=== PATIENT | female | born 1940 | race Caucasian/White ===

== ENCOUNTER → 2024-03-25 11:15 | Outpatient (REF) | payer OTHER, SELFPAY | LOC: RCS 11:15 | PROVIDERS: ATTENDING PHYSICIAN Internal Medicine Cardiovascular Disease; FAMILY PHYSICIAN Internal Medicine | DX: I42.0 Dilated cardiomyopathy (principal); I44.7 Left bundle-branch block, unspecified; I10 Essential (primary) hypertension; R01.1 Cardiac murmur, unspecified; I34.0 Nonrheumatic mitral (valve) insufficiency | CPT/HCPCS: 93306 ==

== ENCOUNTER 2025-04-04 07:44 | Inpatient (IN) | payer OTHER, SELFPAY ==
[2025-04-03 11:47] VITALS: BP 178/83
[2025-04-03 12:05] LABS: % Basophils 0.3 % (0-2); % Eosinophils 0.2 % (0-6); % Lymphocytes 17.1 % (20.5-51.1); % Monocytes 10.2 % (1.7-9.3); % Neutrophils 70.2 % (42.2-75.2); Absolute Immature Granulocytes 0.1 10^3/uL (0-0.05); Absolute Lymphocytes 1.1 10^3/uL (1.2-3.4); Absolute Monocytes 0.7 10^3/uL (0.1-0.6); Absolute Neutrophils 4.6 10^3/uL (1.4-6.5); Hematocrit 40.6 % (37.0-47.0); Hemoglobin 13.3 g/dL (12.0-16.0); Mean Corp Hgb Conc. 32.8 g/dL (33.0-37.0); Mean Corpuscular Hgb 30.1 pg (27.0-31.0); Mean Corpuscular Volume 91.9 fL (81.0-99.0); Mean Platelet Volume 11.1 fL (7.4-10.4); Nucleated Red Blood Cells % 0 %; Platelet Count 197 10^3/uL (130-400); Red Blood Cell Count 4.42 10^6/uL (4.20-5.40); Red Cell Dist. Width 13.8 % (11.5-14.5); White Blood Cell Count 6.5 10^3/uL (4.8-10.8)
[2025-04-03 12:36] LABS: ALT (SGPT) 15 U/L (0-35); AST (SGOT) 23 U/L (14-36); Albumin 4.8 g/dl (3.5-5.0); Alkaline Phosphatase 67 U/L (38-126); Blood Urea Nitrogen 17 mg/dl (7-17); Calcium 9.7 mg/dl (8.4-10.2); Carbon Dioxide 24 mmol/L (22-30); Chloride 110 mmol/L (98-107); Glucose 104 mg/dl (70-99); Potassium 4.6 mmol/L (3.5-5.1); Sodium 142 mmol/L (135-145); Total Bilirubin 1.3 mg/dl (0.2-1.3); Total Protein 6.7 g/dl (6.3-8.2); eGFR 54.87
--- NOTE | 2025-04-03 15:34 | ED.GENMED ---
History of Present Illness
General
Chief Complaint: Change in Mental Status
Source: patient, spouse and family
Time Seen by Provider: 04/03/25 15:25
History of Present Illness
History of Present Illness:
84-year-old female presents to the emergency department as referred by her primary care doctor after noting to be confused off and on since Thursday. Her family, and son, are at bedside and also contribute to history. She gives the example
that she was trying to balance her checkbook and was unable to do so. She describes feeling 'mixed up' and confused. /son states that she has been forgetting things for example she was unable to remember a conversation that she had just an
hour ago or so recall a phone number that she typically would know. Patient does not remember this. She denies double vision or blurry vision, headache, nausea, vomiting, fever, chills, chest pain, dyspnea, urinary symptoms, headache,
lightheadedness, abdominal pain, anorexia, numbness, tingling, focal weakness, change in gait.
Past History
Past History
ED Past Medical History: HTN and Other (Nonischemic dilated cardiomyopathy)
ED Past Surgical History: Gynecological, Orthopedic and Other (Thyroid surgery)
Social History
Tobacco: Non-smoker
Alcohol: Occasional
Personal:
Living: with family
Phy Exam
Physical Exam
Physical Exam:
GENERAL: Alert , in no apparent distress
EYE: pupils equal and reactive, no photophobia, no nystagmus, EOMI
NECK: Supple, no significant adenopathy.
ENT: o/p clr, mmm.
CARDIAC: Regular rate and rhythm .
LUNGS: Clear breath sounds bilaterally, no acute respiratory distress, no wheezes/rales/rhonchi
ABDOMEN: Soft, without focal tenderness, no r/g, no cvat
NEUROLOGICAL: Alert and oriented to person place and time, no focal neuro deficits, walks with a cane, [id number] cranial nerves II through XII intact, motor intact throughout, sensory intact
SKIN: Warm and dry, skin intact.
MUSCULOSKELETAL: No edema, well perfused.
PSYCH: Normal and appropriate interaction.
Course
Orders/Labs/Results
Orders:
Orders
04/03/25 11:[address] [CT Head W/o Iv Contrast] Urgent
Comment:
Reason For Exam: forgetful
04/03/25 11:55
Complete Blood Count/With Diff Urgent
Comprehensive Metabolic Panel Urgent
04/03/25 15:38
Electrocardiogram (*1) Urgent
Reason for Study: TIA/Stroke
EKG- Treatment ONCE
04/03/25 15:40
Urinalysis Reflex To Culture Urgent
Date Specimen was Collected: 04/03/25
Time Specimen was Collected: 15:33
Abnormal Lab Results
04/03/25
11:55
MCHC 32.8 L g/dL
(33.0-37.0)
MPV 11.1 H fL
(7.4-10.4)
Abs Immat Gran (auto) 0.1 H 10^3/uL
(0-0.05)
Absolute Lymphs (auto) 1.1 L 10^3/uL
(1.2-3.4)
Absolute Monos (auto) 0.7 H 10^3/uL
(0.1-0.6)
Immature Gran % 2.0 H %
(0-0.5)
Lymphocytes % 17.1 L %
(20.5-51.1)
Monocytes % 10.2 H %
(1.7-9.3)
Chloride 110 H mmol/L
(98-107)
Glucose 104 H mg/dl
(70-99)
04/03/25 11:55
04/03/25 11:55
Vital Signs
Initial and Last Documented VS:
Initial Vital Signs
Temp Pulse Resp BP Pulse Ox
98.4 F 83 18 178/83 98
04/03/25 11:47 04/03/25 11:47 04/03/25 11:47 04/03/25 11:47 04/03/25 11:47
Last Documented Vital Signs
Temp Pulse Resp BP Pulse Ox
98.4 F 83 18 178/83 97
04/03/25 11:47 04/03/25 11:47 04/03/25 11:47 04/03/25 11:47 04/03/25 15:45
Update Note
Update Note:
Patient presents to the Emergency Department with ___confusion/forgetfulness
Number and Complexity of Problems Addressed at the Encounter
� Chronic conditions affecting care:
� Acute Exacerbation and/or Progression of Chronic Illness:
� Differential Diagnosis includes: But not limited to TGA, TIA, nonepileptic seizure with postictal confusion, electrolyte disorder, etc. etc.
Amount and/or Complexity of Data to be Reviewed and Analyzed
� I performed an independent evaluation of and my interpretation is:
EKG: Read by me, normal sinus rhythm, LAD, left bundle, no acute ischemia
CT: Read by radiology mild cortical atrophy no acute findings
Xrays:
Laboratory Studies: Generally unremarkable
Other:
� Review of other/old records reveals: Patient was admitted for very similar symptoms with a workup in 2018 diagnosed with TGA versus seizure. Cath at that time noted: Mild global hypokinesis with EF 44%
2: No significant CAD
3. Findings consistent with mild dilated cardiomyopathy
echo 2023 Normal left ventricular size, wall thickness and systolic function. LV ejection
fraction is 55-60%. Abnormal (paradoxical) septal motion consistent with left
bundle branch block. Diastolic function indeterminate.
� Clinical information was obtained by an independent historian: Son and who are at bedside
� Prescriptions/Medications Considered but not given:
� Further testing considered but not performed:
Risk of Complications and/or Morbidity or Mortality of Patient Management
� Social determinants of health affecting care:
� Discussion with other providers (PCP, Hospitalists, Consultants, etc):
� Escalation of care including admission/observation vs risk of discharge considered: Concerned that patient's symptoms very similar to her prior presentation of TGA, recommend observation and likely MR will discussed with
hospital
ED Attending Note
-
Portions of this chart may have been created with voice recognition software.� Occasional wrong word or��sound alike� substitutions may have occurred due to the inherent limitations of voice recognition software.
Discharge Plan
Departure
Patient Disposition: Admit
Date of Disposition: 04/03/25
Time of Disposition: 15:57
Admit to: Telemetry
Presentation/result/management discussed w/ accepting MD/DO: Hospitalist
Discharge Problem:
Acute confusion
Prescriptions:
No Action
carvedilol 3.125 MG tablet
3.125 mg PO BID Qty: 60 0RF
lisinopril 5 MG tablet
5 mg PO DAILY Qty: 30 0RF
cholecalciferol (vitamin D3) 1,000 UNITS tablet
1,000 units PO DAILY Qty: 30 0RF
Referrals:
Robinson Hart MD [Family Provider, Internal Medicine]
Interventions
Interventions:
*Risk Screen - Suicide Last Done: 04/03/25 11:47
*General Assessment Last Done: 04/03/25 11:47
*Neglect/Abuse Screening Last Done: 04/03/25 11:47
*ED- Fall Risk Assessment Last Done: 04/03/25 11:47
*ED COVID-19 Vaccine History Last Done: 04/03/25 11:47
ED- Neurological Assessment Last Done: 04/03/25 15:41
Discharge Date and Time
Print Language: MACEDONIAN
[2025-04-03 15:58] LABS: Urine Albumin 2+ (Neg - Trace); Urine Bilirubin Negative (Negative); Urine Color Yellow; Urine Glucose Negative (Negative); Urine Ketone 1+ (Negative); Urine Leukocyte 2+ (Negative); Urine Nitrite Negative (Negative); Urine Occult Blood 2+ (Negative); Urine Urobilinogen 1+ (Neg - 1+)
--- NOTE | 2025-04-03 16:01 | HPS.HSE ---
Family Physician
-
Family Physician: Robinson Hart
Chief Complaint
-
Intermittent confusion/amnesia
History of Present Illness
84 y/o F with PMHx:
Essential HTN
Hypercholesterolemia
Pulmonary hypertension
Moderate tricuspid regurgitation
Who presents with intermittent confusion. 4 days ago the patient was in her usual state of health. She does not have confusion at baseline. Over the last 3 days the patient has had intermittent episodes where she has been confused. Specifically,
she has had trouble balancing the business checkbook. She also could not recall her son's phone number which has been the same for the last 25 years. She also states she had trouble focusing on the clock. She had some nausea over the last 3 days.
Denies any other acute symptomatology including chest pain, shortness of breath, vomiting, diarrhea, abdominal pain, headache, visual disturbances, rash, focal neurological deficits, dysuria or other urinary symptoms.
Medical History
Past Medical History
Past Medical History: Reports Other
Additional Past Medical History:
Essential HTN
Hypercholesterolemia
Pulmonary hypertension
Moderate tricuspid regurgitation
Past Surgical History: Reports Other (N/A)
Social History
Tobacco: Non-smoker
Alcohol: Occasional
Drug: None
Personal:
Living: With Family
Family History
Family History: Not pertinent
Allergies / Home Medications
Allergies reflects when Allergies were last updated in [facility].
Home Medications with original date entered in [facility]
Allergy/Medication List:
Allergies
Allergy/AdvReac Type Severity Reaction Status Date / Time
NKA - No Known Allergies Allergy Unknown Uncoded 04/03/25 11:49
Home Medications
cholecalciferol (vitamin D3) 25 mcg (1,000 unit) tablet 1,000 units PO DAILY ##30 10/14/18
amlodipine 5 mg tablet (Norvasc) 5 mg PO DAILY 04/03/25
ascorbic acid (vitamin C) 1,000 mg tablet (Vitamin C) 1,000 mg PO DAILY 04/03/25
carvedilol 12.5 mg tablet (Coreg) 12.5 mg PO BID 04/03/25
lisinopril 20 mg tablet 20 mg PO DAILY 04/03/25
Review of Systems
-
History Source: Patient
A 12 point ROS was completed and negative except as noted: Yes
Physical Exam
Vital Signs
Vital Signs
Temp Pulse Resp BP Pulse Ox
98.4 F 83 18 178/83 97
04/03/25 11:47 04/03/25 11:47 04/03/25 11:47 04/03/25 11:47 04/03/25 15:45
Physical Exam
General: Other (.)
Laboratory Results
-
04/03/25 11:55
04/03/25 11:55
Laboratory Results
Total Bilirubin 1.3 mg/dl (0.2-1.3) 04/03/25 11:55
AST 23 U/L (14-36) 04/03/25 11:55
ALT 15 U/L (0-35) 04/03/25 11:55
Alkaline Phosphatase 67 U/L (38-126) 04/03/25 11:55
Impression/Plan
-
Gen: NAD, AAOx3.
Eyes: EOMI, PERRLA, no scleral icterus.
Neck: supple.
CV: RRR, +S1/S2, no m/r/g.
Resp: CTAB, no rales, wheezes, or rhonchi.
Abd: +BS, soft, NT, ND
Skin: No rashes.
Neuro: CN 2-12 intact, non-focal.
Psych: Normal mood and affect.
CT head: There is a mild changes of cortical atrophy, with no acute findings.
New onset confusion/amnesia:
-Interestingly the patient had a similar episode in September 2018 and was admitted for 5 days at that time
-CT brain above and without acute findings
-check MRI brain
-c/s neuro
-suspect TGA-like etiology
Essential HTN:
-cont Norvasc/Coreg/Lisinopril (first doses now with hypertensive urgency due to missing today's doses)
Other problems:
Hypercholesterolemia
Pulmonary hypertension
Moderate tricuspid regurgitation
FULL/Lovenox
[2025-04-03 16:07] LABS: Urine Character Slightly Cloudy (Clear)
[2025-04-03 16:22] LABS: Urine Bacteria Moderate (Negative); Urine Mucus Moderate; Urine Squamous Cell >30 /LPF (Few)
[2025-04-03 16:40] VITALS: BP 182/68
[2025-04-03] MEDS: ZESTRIL 20 MG PO (16:40)
[2025-04-03] MEDS: NORVASC 5 MG PO (16:42)
[2025-04-03] MEDS: COREG 12.5 MG PO (16:42)
[2025-04-03 17:00] VITALS: BP 170/51
[2025-04-03 18:32] VITALS: BP 156/69; BMI 25.7
--- NOTE | 2025-04-03 18:36 | PTCARENOTE ---
pt admitted from ED to room 406-01. pt ambulated with cane to bed. standing weight obtained. pt AAOX3- states she is forgetful recently. pt oriented to room and unit
[2025-04-03] MEDS: LOVENOX 40 MG SC (19:20)
--- NOTE | 2025-04-03 22:46 | PTCARENOTE ---
Dr. Melendez notified of MRI results. No new orders obtained at this time. Chuy ALEXIS also notified. NIH/Neuro check performed per nursing protocol. NIH 0 with no neuro deficits noted at this time. PT AAOx3 able to ambulate with cane to bathroom with
assistance. Pt denies any complaints at this time. Bed alarm in place for pt safety. Vital signs stable. Will continue to monitor.
--- NOTE | 2025-04-03 23:16 | W.PN.UPDATE ---
Update Note
Progress Note Update
CRITICAL VALUE: Results sent to Dr. Melendez on 04/03/2025 at 9:27 PM.
Received MRI results: Prominent nonhemorrhagic acute/subacute left parietal lobe infarct. Additional scattered smaller infarcts in the left occipital lobe.
Neurology previously consulted.
Patient started on ASA and Plavix. Ordered NIH/Neuro checks.
NIH score 0 at 22:43 on 04/03/25.
[2025-04-03 23:46] VITALS: BP 128/54
[2025-04-04] VITALS (7 sets, daily range): BP systolic 106–125; BP diastolic 48–64; PULSE 71–73; O2SAT 94
[2025-04-04] MEDS: LOW STRENGTH ASPIRIN 81 MG PO ×2 (00:08→07:43)
[2025-04-04] MEDS: PLAVIX 75 MG PO ×2 (00:08→07:44)
[2025-04-04] MEDS: COREG 12.5 MG PO ×3 (06:06→19:39)
[2025-04-04 07:33] LABS: HDL Cholesterol 42 mg/dl; LDL Cholesterol, Calculated 102 mg/dl; Total Cholesterol 163 mg/dl (50-199); Triglyceride 99 mg/dl (10-149); Very Low Density Lipoprotein 19 mg/dl (0-30)
[2025-04-04] MEDS: ZESTRIL 20 MG PO (07:43)
[2025-04-04] MEDS: NORVASC 5 MG PO (07:43)
[2025-04-04] MEDS: VITAMIN C 1000 MG PO (07:44)
[2025-04-04] MEDS: VITAMIN D3 (cholecalciferol) 25 MCG PO (07:44)
[2025-04-04] MEDS: FLUSH (NSS) 1 FLUSH IV (07:44)
--- NOTE | 2025-04-04 07:45 | W.PN.HOSP.TC ---
Today's Communication/Plan
-
see plan
Assessment / Plan
Assessment / Plan
Gen: NAD, awake and alert
Eyes: EOMI, PERRLA, no scleral icterus.
Neck: supple.
CV: RRR, +S1/S2, no m/r/g.
Resp: CTAB, no rales, wheezes, or rhonchi.
Abd: +BS, soft, NT, ND
Skin: No rashes.
Neuro: Very slight right facial droop, expressive aphasia, otherwise CN 2-12 intact
Psych: Normal mood and affect.
CT head: There is a mild changes of cortical atrophy, with no acute findings.
MRI brain: Prominent nonhemorrhagic acute/subacute left parietal lobe infarct. Additional scattered smaller infarcts in the left occipital lobe.
MRA head: This examination demonstrates no focal hemodynamically significant stenosis, aneurysm or occlusion.
MRA Neck: This examination demonstrates no focal hemodynamically significant stenosis, aneurysm or occlusion. Heterogeneous appearance of the left hemithyroid, possible thyroid nodules. Consider further evaluation with dedicated thyroid ultrasound.
Acute CVAs:
-presented with new onset confusion/amnesia
-MRI brain above with acute CVAs
-MRA head/neck above without focal hemodynamically significant stenoses, aneurysm, or occlusion
-neuro following
-tele with SR (reviewed by me)
-cont neurochecks
-cont ASA, cont Plavix x 21 days
-start statin
-check CTA head/neck
Essential HTN:
-cont Norvasc/Coreg/Lisinopril
Other problems:
Hypercholesterolemia: Start statin
Pulmonary hypertension
Moderate TR
FULL/Lovenox
Anticipated Discharge: Within 24 hours
Subjective/Interval History
-
Date of Service: April 04, 2025
Patient without acute complaints. She is experiencing some expressive aphasia.
Objective Data
-
Vital Signs:
Vital Signs
Temp Pulse Resp BP Pulse Ox
98.4 F 76 16 123/63 96
04/04/25 07:41 04/04/25 07:41 04/04/25 07:41 04/04/25 07:41 04/04/25 07:41
I&O
04/03/25 04/04/25 04/05/25
06:59 06:59 06:59
Intake Total 480 / 480
Balance 480 / 480
--- NOTE | 2025-04-04 08:09 | CON.NEURO ---
Addendum entered and electronically signed by Librado Melendez MD 04/04/25 11:32:
Studies reviewed.
I have personally examined the patient. I reviewed and agree with the MECHANIC'S ASSISTANT's Note.
My addenda:
Awake, alert, interactive. No acute distress.
Speech intact. Patient demonstrates dyscalculia
Follows 2-step requests w/o difficulty. No tremor.
Extra-ocular movements grossly intact.
Facial movements full and symmetric. Hearing intact to normal conversational volume.
Normal UE movements bilaterally.
Neck: full ROM.
Chest: no dyspnea
Heart: no JVD
Ext: (-) Clubbing, (-) Cyanosis, (-) Edema
IMPRESSIONS/RECOMMENDATIONS:
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
Patient was not a candidate for either tenecteplase or intra-arterial thrombectomy due to out of timeframe
Patient should undergo treatment with dual antiplatelet therapy followed by aspirin 81 mg routinely
Check CTA head and neck to ensure there is no clinically significant stenosis intracranially or extracranially
Rehabilitation evaluations
D/W patient
All questions answered.
Will continue to follow as outpatient.
Original Note:
Documented by User: Mai Tsang NP 04/04/25 09:38
Neuro Assessment/Plan
Assessment
84-year-old right-handed female with a past medical history of HTN, LBBB and nonischemic cardiomyopathy presented to [facility] on 04/03/2025 as referred by her primary care doctor Dr. Hart after noted to have intermittent confusion since Thursday
(03/31/2025).
ECG: NORMAL SINUS RHYTHM
LEFT AXIS DEVIATION
LEFT BUNDLE BRANCH BLOCK
ABNORMAL ECG
WHEN COMPARED WITH ECG OF 09-OCT-2018 21:55,
NO SIGNIFICANT CHANGE WAS FOUND
Confirmed by MD DB, NOE Mcconnell ([id number]) on 04/03/2025 4:16:[address]: mild changes of cortical atrophy, with no acute findings
Brain MRI: prominent nonhemorrhagic acute/subacute left parietal lobe infarct with additional scattered smaller infarcts in the left occipital lobe.
Labs: Cholesterol 163, LDL 102, Hgb A1C pending
Plan
Impression: acute/subacute left parietal and left occipital lobe infarcts with multiple risk factors including HTN, HLD and chronic small vessel ischemic changes
-check CTA head and neck
-BP goal is normotension.
-ASA 81mg and Clopidigrel 75 mg daily for 21 days followed by monotherapy with ASA 81 mg daily
-hemoglobin A1C pending, with goal <7. Goal is normoglycemia.
-continue Atorvastatin 40 mg nightly, Goal LDL after stroke is <70.
-PT/OT/ST evaluations
-DVT prophylaxis
-continue neurochecks and NIHSS per unit guidelines
-stroke education material to be given
Plan of care discussed with Dr. Melendez and patient, all questions encouraged and answered.
Consultation
Order
Date of Consultation: 04/04/25
Requesting Provider: hospitalist/Dr. Hamm
Reason for Consult: confusion
Subjective/Objective
Subjective Data
Date of Service: April 04, 2025
84-year-old right-handed female with a past medical history of HTN, LBBB and nonischemic cardiomyopathy presented to [facility] on 04/03/2025 as referred by her primary care doctor Dr. Hart after noted to have intermittent confusion since Thursday
(03/31/2025). She does not have confusion at baseline. She states she started having trouble balancing her checkbook acutely. She describes feeling 'mixed up' and confused. She states she had a similar feeling of confusion in September 2018 and was
admitted for 5 days at that time. She was diagnosed with TGA versus seizure. Cath at that time noted: Mild global hypokinesis with EF 44%, no significant CAD, findings consistent with mild dilated cardiomyopathy. She denies double vision or blurry
vision, headache, nausea, vomiting, fever, chills, chest pain, dyspnea, urinary symptoms, headache, lightheadedness, abdominal pain, anorexia, numbness, tingling, focal weakness, change in gait. She does not drive. She continues to participate in
her hobbies. She has hypertension and takes metoprolol. In ED she was found to be hypertensive with SBP in the 180s. ECG showed normal sinus rhythm with LBBB. Her head CT showed mild changes of cortical atrophy, with no acute findings. Her brain MRI
showed prominent nonhemorrhagic acute/subacute left parietal lobe infarct with additional scattered smaller infarcts in the left occipital lobe. Labs notable for LDL 102.
Objective Data
Vital Signs
Temp Pulse Resp BP Pulse Ox
98.4 F 76 16 123/63 96
04/04/25 07:41 04/04/25 07:44 04/04/25 07:41 04/04/25 07:44 04/04/25 07:41
Lab Results
04/03/25 11:55
04/03/25 11:55
Sodium 142 mmol/L (135-145) 04/03/25 11:55
Potassium 4.6 mmol/L (3.5-5.1) 04/03/25 11:55
BUN 17 mg/dl (7-17) 04/03/25 11:55
Glucose 104 mg/dl (70-99) H 04/03/25 11:55
Calcium 9.7 mg/dl (8.4-10.2) 04/03/25 11:55
LDL Cholesterol, Calc 102 mg/dl 04/04/25 06:17
Patient Allergies
No Known Allergies Allergy (Verified 04/03/25 18:45)
LDL Level: >70, statin ordered
CVA Assessment
Onset of Stroke Symptoms
Onset of symptoms known: Yes
Date of onset of symptoms: 03/31/25
NIH Stroke Score
Level of Consciousness: 0 - Alert
LOC Questions: 0-Answers both correctly
LOC Commands: 0-Performs both correctly
Best Horizontal Gaze: 0-Normal
Visual Suárez: 0=Normal, no visual loss
Facial Palsy: 0=Normal, symmetrical
Motor - Right Arm: 0=No drift 10 seconds
Motor - Left Arm: 0=No drift 10 seconds
Motor - Right Le-No drift 5 seconds
Motor - Left Le-No drift 5 seconds
Limb Ataxia: 0-Absent
Sensation: 0-Normal
Best Language: 0-No aphasia
Dysarthria: 0-Normal
Extinction and Inattention: 1-Sensory inattention (right)
NIH Total Score:: 1
Tenecteplase Contraindications
Inclusion and Exclusion criteria reviewed: Yes
Reasons for NON-Tx with Thrombolytics ABSOLUTE Exclusions: Time-out of window
IAT Contraindications: NIHSS < 6 and >6 hrs from onset/last seen normal
Modified Carla Score (MRS)
-
Modified Carla Scale (mRS): Moderate disability. Requires some help, able to walk unassisted.
Score: 3
Review of Systems
-
History Source: Patient
Constitutional: No Symptoms
EENT: No Symptoms Reported
Respiratory: No Symptoms
Cardiac: No Symptoms
Abdomen/GI: No Symptoms
Genitourinary: No Symptoms
Musculoskeletal: No Symptoms
Neuro: Other (confusion)
Physical Exam
-
General: No Apparent Distress, Comfortable and Appears Stated Age
HEENT: Normocephalic, Atraumatic and Anicteric
Neck: Full Range of Motion
Respiratory: No Dyspnea
Cardiac: No JVD
GI: Non-distended
Skin: Unremarkable
Extremities: No Clubbing, No Cyanosis and No Edema
Psych: Confused
Extended Neurological Exam
Attention Span & Concentration: Awake, Alert, Interactive, Mild Difficulty with 2 Step Request and Other (Stated month was june and year was 2021, difficulty with serial 7s)
Memory: Reduced
Tremor: Hand Tremor Absent and Head Tremor Absent
Speech: Quality Unremarkable, Quantity Unremarkable and Rate of Production Unremarkable
Cranial Nerve II: Left Eye: Visual Suárez Grossly Intact
Cranial Nerve II: Right Eye: Visual Suárez Grossly Intact
Cranial Nerves III, IV, : Extraocular Movement: Extraocular Movement Full in all Directions
Cranial Nerve VII: Facial Symmetry: Normal Facial Symmetry
Cranial Nerve VIII: Hearing: Unremarkable Hearing to Normal Conversational Volume
Cranial Nerve XII: Tongue Protusion: Midline
Muscle Strength, Overall: Full Throughout
Muscle Bulk & Tone: Bulk Unremarkable and Tone Unremarkable
Pronator Drift: No Drift in Upper Extremities and No Drift in Lower Extremities
Deep Tendon Reflexes: Trace Throughout
Coordination: [id number] Testing Unremarkable
Data Reviewed
-
CT Head: Report Reviewed and Image Reviewed
MRI Head: Report Reviewed and Image Reviewed
Labs: Report Reviewed
Lipid Profile: Report Reviewed
Reviewed with: Physician, Nurse and Patient
Old Records: Summarized
Medications
-
Active Medications
Generic Name Dose Route Start Last Admin
Trade Name Freq PRN Reason Stop Dose Admin
Acetaminophen 650 mg 04/03/25 18:39
Acetaminophen 325 Mg Tablet PO 05/01/25 18:38
Q4HPRN PRN
mild pain/FISCHER/temp> 100.4F
Acetaminophen 650 mg 04/03/25 23:24
Acetaminophen 650 Mg Rectal Suppository RECTAL 05/01/25 23:23
Q4HPRN PRN
FISCHER, mild pain, or temp >100.4F
Acetaminophen 650 mg 04/03/25 23:24
Acetaminophen 325 Mg Tablet PO 05/01/25 23:23
Q4HPRN PRN
FISCHER, mild pain, or temp >100.4F
Amlodipine Besylate 5 mg 04/04/25 08:00 04/04/25 07:43
Amlodipine 5 Mg Tablet PO 05/02/25 07:59 5 mg
DAILY SILVIANO Administration
Ascorbic Acid 1,000 mg 04/04/25 08:00 04/04/25 07:44
Ascorbic Acid 500 Mg Tablet PO 05/02/25 07:59 1,000 mg
DAILY SILVIANO Administration
Aspirin 81 mg 04/04/25 08:00 04/04/25 07:43
Aspirin 81 Mg Chewable Tablet PO 05/02/25 07:59 81 mg
DAILY SILVIANO Administration
Atorvastatin Calcium 40 mg 04/04/25 18:00
Atorvastatin (Lipitor) 40 Mg Tablet PO 05/02/25 17:59
QPM SILVIANO
Bisacodyl 10 mg 04/03/25 18:39
Bisacodyl 10 Mg Rectal Suppository RECTAL 05/01/25 18:38
[id number] PRN
constipation
Carvedilol 12.5 mg 04/04/25 07:00 04/04/25 07:44
Carvedilol 12.5 Mg Tablet PO 05/02/25 06:59 12.5 mg
BID SILVIANO Administration
Cholecalciferol 25 mcg 04/04/25 08:00 04/04/25 07:44
Cholecalciferol (Vitamin D3) 25 Mcg Tablet (1,000 Units) PO 05/02/25 07:59 25 mcg
DAILY SILVIANO Administration
Clopidogrel Bisulfate 75 mg 04/04/25 08:00 04/04/25 07:44
Clopidogrel 75 Mg Tablet PO 05/02/25 07:59 75 mg
DAILY SILVIANO Administration
Enoxaparin Sodium 40 mg 04/03/25 18:39 04/03/25 19:20
Enoxaparin Sodium 40 Mg/0.4 Ml Syringe SC 05/01/25 18:38 40 mg
QPM SILVIANO Administration
Lisinopril 20 mg 04/04/25 08:00 04/04/25 07:43
Lisinopril 20 Mg Tablet PO 05/02/25 07:59 20 mg
DAILY SILVIANO Administration
Polyethylene Glycol 17 grams 04/03/25 18:39
Polyethylene Glycol Powder 17 Grams Packet PO 05/01/25 18:38
DAILYPRN PRN
constipation
Senna/Docusate Sodium 1 tablet 04/03/25 18:39
Docusate W/Senna (Cece-Colace) Tablet PO 05/01/25 18:38
BIDPRN PRN
constipation
Sodium Chloride 0 flush 04/03/25 19:00 04/04/25 07:44
Sodium Chloride 0.9% (Flush) Syringe IV 05/01/25 18:59 1 flush
PER PROTOCOL SILVIANO Administration
Home Medications
�Medication �Instructions �Recorded
cholecalciferol (vitamin D3) 25 1,000 units PO DAILY ##30 10/14/18
mcg (1,000 unit) tablet
amlodipine 5 mg tablet (Norvasc) 5 mg PO DAILY Blood Pressure 04/03/25
ascorbic acid (vitamin C) 1,000 mg 1,000 mg PO DAILY Supplement 04/03/25
tablet (Vitamin C)
carvedilol 12.5 mg tablet (Coreg) 12.5 mg PO BID Blood Pressure 04/03/25
lisinopril 20 mg tablet 20 mg PO DAILY Blood Pressure 04/03/25
Past History
Past History
ED Past Medical History: HTN and Other (Nonischemic dilated cardiomyopathy)
ED Past Surgical History: Gynecological, Orthopedic and Other (Thyroid surgery)
Family/Social History
Tobacco: Non-smoker
Alcohol: Occasional
Personal:
Living: with family

Documented by User: Librado Melendez MD 04/04/25 11:21
CVA Assessment
NIH Stroke Score
NIH Total Score:: 1
Modified [place] Score (MRS)
-
Score: 3
[2025-04-04 11:43] LABS: Glycohemoglobin (HgbA1c) 5.4 % (4.0-5.6)
--- NOTE | 2025-04-04 15:13 | PTOTSP ---
Speech-Language Pathology - Communication Assessment
Patient presents with at least mild cognitive communication deficits in the areas of memory, and complex verbal processing. Possible agraphia though auditory and visual distractions in room, and known visual difficulty (son reports patient in need
of eyeglass prescription change) may be impacting results of testing.
Discussed with patient and her son this manager mail's recommendations as noted below. Also provided patient/son with brochure on outpatient services should patient be discharged to that level of care.
Recommend:
1. Comprehensive cognitive communication assessment in next level of care. ST will follow with further cognitive communication assessment while in acute setting.
2. Continue with regular solids and thin liquids.
--- NOTE | 2025-04-04 15:58 | PTCARENOTE ---
Pt AAO x3, but has poor short term memory; needs frequent direction with activities. NIHSS 0. Pt pleasant and cooperative; denies c/o. GREENE; OOB in chair/ambulates to BR with cane and minimal assistance; denies weakness/dizziness. VSS.
Telemetry:NSR. On room air- pulse ox 97%, no SOB noted. Abd soft, con PO wel, no dysphagia noted. Voids in BR; has slight stress incont. Resting comfortably at present. Will continue to monitor.
--- NOTE | 2025-04-04 16:21 | CM ---
Alert awake oriented patient who lives with her Ed in a 2 story home with 1 steps to enter and 12 steps to bed/bathroom. She is independent in activates of daily living.She does drive .She used a cane.
No VN in past . No SNF hx
Pharmacy [facility]
PCP Dr Hart
PLAN Home with no needs
[2025-04-04] MEDS: LIPITOR 40 MG PO (17:24)
[2025-04-04] MEDS: LOVENOX 40 MG SC (17:24)
[2025-04-05 03:40] VITALS: BP 134/59
[2025-04-05 07:59] VITALS: BP 164/64
[2025-04-05] MEDS: NORVASC 5 MG PO (08:20)
[2025-04-05] MEDS: LOW STRENGTH ASPIRIN 81 MG PO (08:20)
[2025-04-05] MEDS: PLAVIX 75 MG PO (08:20)
[2025-04-05] MEDS: COREG 12.5 MG PO (08:20)
[2025-04-05] MEDS: VITAMIN C 1000 MG PO (08:20)
[2025-04-05] MEDS: ZESTRIL 20 MG PO (08:21)
[2025-04-05] MEDS: VITAMIN D3 (cholecalciferol) 25 MCG PO (08:21)
--- NOTE | 2025-04-05 09:55 | W.PN.HOSP.TC ---
Today's Communication/Plan
-
d/c
Assessment / Plan
Assessment / Plan
Gen: NAD, awake and alert
Eyes: EOMI, PERRLA, no scleral icterus.
Neck: supple.
CV: remains RRR, +S1/S2, no m/r/g.
Resp: remains CTAB, no rales, wheezes, or rhonchi.
Abd: +BS, soft, NT, ND
Skin: No rashes.
Neuro: CN 2-12 intact, intact
Psych: Normal mood and affect.
CT head: There is a mild changes of cortical atrophy, with no acute findings.
MRI brain: Prominent nonhemorrhagic acute/subacute left parietal lobe infarct. Additional scattered smaller infarcts in the left occipital lobe.
MRA head: This examination demonstrates no focal hemodynamically significant stenosis, aneurysm or occlusion.
MRA Neck: This examination demonstrates no focal hemodynamically significant stenosis, aneurysm or occlusion. Heterogeneous appearance of the left hemithyroid, possible thyroid nodules. Consider further evaluation with dedicated thyroid ultrasound.
CTA head/neck: No acute vascular pathology. No M1 nor M2 occlusion. Stable findings suggesting small subacute left parieto-occipital region infarct. Mild atrophy. Stable. Multilevel degenerative disc disease of the cervical spine. Hypodense left
thyroid lesion likely a benign nodule. Nonurgent dedicated thyroid ultrasound recommended if not previously evaluated.
Acute CVAs:
-presented with new onset confusion/amnesia
-MRI brain above with acute CVAs
-MRA head/neck and CTA head/neck above without focal hemodynamically significant stenoses, aneurysm, or occlusion
-tele with SR (reviewed by me)
-cont neurochecks
-cont ASA, cont Plavix x 21 days
-cont statin
-neuro saw in c/s and has medically cleared the pt for discharge
Essential HTN:
-cont Norvasc/Coreg/Lisinopril
Other problems:
Hypercholesterolemia: Start statin
Pulmonary hypertension
Moderate TR
FULL/Lovenox
Medically cleared for discharge. Case management aware.
Total time spent on d/c = 31 min. This included today's physical exam, progress note, review of laboratory and diagnostic data, preparation of discharge documents and prescriptions, and discussions about the pt's hospital course and discharge plan
with the patient and other medical field representative involved in the patient's care.
Anticipated Discharge: Today
Subjective/Interval History
-
Date of Service: April 05, 2025
No new complaints.
Objective Data
-
Vital Signs:
Vital Signs
Temp Pulse Resp BP Pulse Ox
99 F 83 16 164/64 97
04/05/25 07:59 04/05/25 07:59 04/05/25 07:59 04/05/25 07:59 04/05/25 08:25
I&O
04/04/25 04/05/25 04/06/25
06:59 06:59 06:59
Intake Total 480 / 480 1640 / 1640 240 / 240
Balance 480 / 480 1640 / 1640 240 / 240
--- NOTE | 2025-04-05 11:11 | CM ---
entered order for discharge.
Spoke with pt and son Sheldon .
[facility] .
Pt changed to inpatient IMM reviewed with pt and son Sheldon IMM signed on chart.
Sheldon and will drive her home.
MD notified son Sheldon would like update.
PLAN Home with VN
[2025-04-05 11:13] VITALS: BP 103/40
--- NOTE | 2025-04-05 12:13 | VNURNOTE ---
Attempted to meet with pt at bedside. Nurses were working with her, no family at bedside. Call placed to spouse Ed, no answer, left message. [facility] referral placed in [facility].
[2025-04-05 12:41] VITALS: PULSE 66; O2SAT 97
--- NOTE | 2025-04-05 12:45 | VNURNOTE ---
Home Health Liaison met with patient, spouse, and son Sheldon at bedside to discuss [facility] nurse/therapy, visits, schedule and homebound status. All are agreeable and understand that visits at home will be 2-3 x per week to assess and teach medical
management. All are aware that [facility] will contact them for start of care in 1-2 days after discharge from .
[facility] referral completed in [facility].
--- NOTE | 2025-04-05 14:15 | PTCARENOTE ---
Pt with confusion. Intermittent right arm ataxia and intermittent mild aphasia throughout shift. NIHSS 3. Dr. Hamm and Dr. Melendez notified. Dr. Melendez stated that expectation is for symptoms to 'wax and wane.' Communicated to and son at
bedside. Discharge orders entered and medication and instructions reviewed with patients and family. Questions answered. IV sites and telemetry pack removed. Pt escorted to son's car by wheelchair.
--- NOTE | 2025-04-05 15:54 | W.DCSUMMARY ---
Discharge Summary
Discharge Data
Date of Admission: 04/04/25
Date of Discharge: 04/05/25
-
Pending Results: No
Hospital Course
Primary diagnoses:
Acute acute/subacute left parietal lobe infarct and scattered smaller infarcts in the left occipital lobe
Secondary diagnoses:
Hyperlipidemia
Pulmonary hypertension
Moderate tricuspid regurgitation
Consultants:
Neurology
Imaging:
CT head: There is a mild changes of cortical atrophy, with no acute findings.
MRI brain: Prominent nonhemorrhagic acute/subacute left parietal lobe infarct. Additional scattered smaller infarcts in the left occipital lobe.
MRA head: This examination demonstrates no focal hemodynamically significant stenosis, aneurysm or occlusion.
MRA Neck: This examination demonstrates no focal hemodynamically significant stenosis, aneurysm or occlusion. Heterogeneous appearance of the left hemithyroid, possible thyroid nodules. Consider further evaluation with dedicated thyroid ultrasound.
CTA head/neck: No acute vascular pathology. No M1 nor M2 occlusion. Stable findings suggesting small subacute left parieto-occipital region infarct. Mild atrophy. Stable. Multilevel degenerative disc disease of the cervical spine. Hypodense left
thyroid lesion likely a benign nodule. Nonurgent dedicated thyroid ultrasound recommended if not previously evaluated.
Hospital course: 84-year-old female presented with a chief complaint of intermittent memory loss as outlined in the H&P done on admission. All imaging above and notable for acute acute/subacute left parietal lobe infarct and scattered smaller
infarcts in the left occipital lobe. The patient was placed on aspirin and statin. She was placed on Plavix for which she will complete a 21-day course. Telemetry showed sinus rhythm and did not reveal atrial fibrillation or flutter. The patient
was discharged in medically stable condition.
Incidental finding: Heterogeneous appearance of the left hemithyroid, possible thyroid nodules. Consider further evaluation with dedicated thyroid ultrasound.
- This was discussed with the patient's son over the phone at 1600 on 04/05/25. I recommended a thyroid ultrasound within the next 1 to 2 months. He verbally acknowledged understanding of this.
Discharge Plan
-
Patient Disposition: Home with Home Care
Discharge Diagnosis/Procedures: Acute acute/subacute left parietal lobe infarct and scattered smaller infarcts in the left occipital lobe
Condition: Good
Diet: Other diet
Additional Diets: Heart healthy
Activity: As tolerated
Driving Restrictions: No driving
Instructions: Stroke, Recovery after stroke, Stroke - Discharge instructions
Referrals:
Robinson Hart MD [Family Provider, Internal Medicine] - in less than 1 week
Librado Melendez MD [Active, Neurology] - in four to six weeks
Prescriptions:
New
atorvastatin 40 mg Tablet
40 mg PO QPM Qty: 30 0RF
clopidogrel 75 mg Tablet
75 mg PO DAILY Qty: 18 0RF
aspirin 81 mg Tablet,Chewable
81 mg PO DAILY Qty: 0 0RF
Continued
cholecalciferol (vitamin D3) 1,000 UNITS tablet
1,000 units PO DAILY Qty: 30 0RF
carvedilol [Coreg] 12.5 mg Tablet
12.5 mg PO BID
lisinopril 20 mg Tablet
20 mg PO DAILY
amlodipine [Norvasc] 5 mg Tablet
5 mg PO DAILY
ascorbic acid (vitamin C) [Vitamin C] 1,000 mg Tablet
1,000 mg PO DAILY
Discharge Orders:
Discharge Patient (As Directed); Ordered 04/05/25
Ordered By: Rolando Hamm
Discharge Date and Time
Discharge Date/Time: 04/05/25 14:05
Print Language: [id number]
== END 2025-04-05 14:05 | disposition home health service (06) | DRG 65 ==
LOC: 4 EAST ACU 07:44
PROVIDERS: Emergency Medicine; Nurse Practitioner Family; ADMITTING PHYSICIAN Internal Medicine; CONSULT PHYSICIAN Psychiatry & Neurology Neurology; EMERGENCY PHYSICIAN Emergency Medicine; FAMILY PHYSICIAN Internal Medicine Gastroenterology
DX: I63.9 Cerebral infarction, unspecified (principal); I42.0 Dilated cardiomyopathy; I10 Essential (primary) hypertension; I44.7 Left bundle-branch block, unspecified; E78.00 Pure hypercholesterolemia, unspecified; I27.20 Pulmonary hypertension, unspecified; I07.1 Rheumatic tricuspid insufficiency; R11.0 Nausea; R41.3 Other amnesia; R48.8 Other symbolic dysfunctions; M50.31 Other cervical disc degeneration, high cervical region; E04.1 Nontoxic single thyroid nodule; G31.9 Degenerative disease of nervous system, unspecified; I16.0 Hypertensive urgency
CPT/HCPCS: 70450; 70496; 70498; 70544; 70548; 70551; 80053; 80061; 81003; 81015; 83036; 85025; 87086; 92507; 92523; 93005; 97116; 97129; 97163; 97167; 97530; 99285; A9585; Q9967

== ENCOUNTER → 2025-06-01 13:43 | Outpatient (REF) | payer OTHER, SELFPAY | LOC: RCS 13:43 | PROVIDERS: ATTENDING PHYSICIAN Nurse Practitioner Gerontology; FAMILY PHYSICIAN Internal Medicine | DX: I42.0 Dilated cardiomyopathy (principal); I63.9 Cerebral infarction, unspecified; I44.7 Left bundle-branch block, unspecified | CPT/HCPCS: 93306 ==